=== PATIENT | female | born 1945 | race Caucasian/White ===

== ENCOUNTER → 2016-12-21 | Outpatient (CLI) | payer MEDICARE, BC ==
--- NOTE | 2016-12-21 17:16 | RADRPT ---
PROCEDURE: Left knee radiographs. CLINICAL INDICATION: Left knee pain. TECHNIQUE: Four views. Weight bearing. Frontal, lateral, oblique, and patellar view. COMPARISON: No prior studies are available for comparison. FINDINGS: There is no fracture or dislocation. The soft tissues are normal. There is diffuse osteopenia. There are degenerative changes of the left knee with osteophytes arising from all 3 joint compartmen t margins. There is medial joint compartment narrowing. There is no lytic or blastic lesion. There is no radiopaque foreign body. IMPRESSION: 1. Moderate degenerative changes of the left knee. 2. Diffuse osteopenia. 3. Otherwise unremarkable study. RPTAT: QQ .Carlton Burnett MD, Date Time Electronically viewed and signed by .Carlton Burnett MD, on 12/21/2016 17:16 .R/
== END | disposition home or self-care (01) ==
LOC: HKI 10:24
PROVIDERS: ATTEND Orthopaedic Surgery
DX: M25.562 Pain in left knee (principal); M17.12 Unilateral primary osteoarthritis, left knee
CPT/HCPCS: 20610; 73564; G0463; J1030